=== PATIENT | female | born 1975 | race Two or more races ===

== ENCOUNTER 2021-10-09 12:56 | Outpatient (CLI) | payer OTHER ==
[2021-10-10] MEDS ORDERED: ORILISSA150 MG PO (09:51)
== END 2021-10-09 13:01 | disposition home or self-care (01) ==
LOC: LAB 12:56
PROVIDERS: ATTEND Radiology Diagnostic Radiology
DX: N80.3 Endometriosis of pelvic peritoneum (principal)

== ENCOUNTER 2021-10-11 07:37 | Outpatient (CLI) | payer OTHER ==
[~2021-10-11 07:37] MED LIST: ORILISSA150 MG PO
== END 2021-10-11 10:50 | disposition home or self-care (01) ==
LOC: LAB 07:37
PROVIDERS: ATTEND Internal Medicine Geriatric Medicine
DX: D68.9 Coagulation defect, unspecified (principal)

== ENCOUNTER 2021-10-11 08:09 | Outpatient (CLI) | payer OTHER | END 2021-10-11 15:49 | disposition home or self-care (01) | LOC: TOM 08:09 | PROVIDERS: ATTEND Urology | DX: N80.3 Endometriosis of pelvic peritoneum (principal) ==

== ENCOUNTER 2021-10-18 05:50 | Inpatient (IN) | payer OTHER ==
[~2021-10-18] VITALS: Ht 160 cm; Wt 54.9 kg
== END 2021-10-19 14:24 | disposition home or self-care (01) | DRG 334 ==
LOC: CIR.AMB 05:50 → O/R 15:07 → SURH 15:26
PROVIDERS: Obstetrics & Gynecology Gynecology; ADMIT Surgery; ATTEND Surgery
PROC: 0DN84ZZ Release Small Intestine, Percutaneous Endoscopic Approach (ICD-10-PCS; 2021-10-18)
PROC: 0TN74ZZ Release Left Ureter, Percutaneous Endoscopic Approach (ICD-10-PCS; 2021-10-18)
PROC: 0TN64ZZ Release Right Ureter, Percutaneous Endoscopic Approach (ICD-10-PCS; 2021-10-18)
PROC: 0DTJ4ZZ Resection of Appendix, Percutaneous Endoscopic Approach (ICD-10-PCS; 2021-10-18)
PROC: 0DJD8ZZ Inspection of Lower Intestinal Tract, Via Natural or Artificial Opening Endoscopic (ICD-10-PCS; 2021-10-18)
PROC: 0T788DZ Dilation of Bilateral Ureters with Intraluminal Device, Via Natural or Artificial Opening Endoscopic (ICD-10-PCS; 2021-10-18)
PROC: 0UT94ZZ Resection of Uterus, Percutaneous Endoscopic Approach (ICD-10-PCS; 2021-10-18)
PROC: 0UB74ZZ Excision of Bilateral Fallopian Tubes, Percutaneous Endoscopic Approach (ICD-10-PCS; 2021-10-18)
PROC: 0UB24ZZ Excision of Bilateral Ovaries, Percutaneous Endoscopic Approach (ICD-10-PCS; 2021-10-18)
PROC: 0DTP4ZZ Resection of Rectum, Percutaneous Endoscopic Approach (ICD-10-PCS; principal; 2021-10-18 09:00)
PROC: 0DNW4ZZ Release Peritoneum, Percutaneous Endoscopic Approach (ICD-10-PCS; 2021-10-18 09:00)
DX: N80.5 Endometriosis of intestine (principal); N80.3 Endometriosis of pelvic peritoneum; Z20.822 Contact with and (suspected) exposure to COVID-19; N80.0 Endometriosis of uterus; K66.0 Peritoneal adhesions (postprocedural) (postinfection); N72 Inflammatory disease of cervix uteri; D25.1 Intramural leiomyoma of uterus; N80.1 Endometriosis of ovary